=== PATIENT | male | born 1985 | race African-American/Black ===

== ENCOUNTER 2019-04-20 23:26 | Emergency (ER) | payer SELFPAY ==
[2019-04-20 23:37] VITALS: TEMP 98.2; BMI 31.5
[2019-04-20] MEDS ORDERED: IBUPROFEN 600 MG TABLET (FP) PO ONE (23:45)
[2019-04-20] MEDS ORDERED: DIPHTH,PERTUSS(ACELL),TET 0.5 ML DISP.SYRIN IM ONE (23:46)
[2019-04-21] MEDS ORDERED: AMOX TR/POT CLAV 875MG/125MG TABLETS (FP) PO ONE (00:10)
--- NOTE | 2019-04-21 00:25 | PDOC ---
History of Present Illness - General History Source: Patient, Significant Other Exam Limitations: No Limitations - History of Present Illness Initial Comments: 04/21/19 00:20 Shania Callahan is an otherwise healthy 33M presenting with dog bites to both arms. 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 Dog is a beagle/dalmatian mix, <30lbs. Per [place], phytopathology teacher's name is Naldo De La Cruz, vet is [facility], but actual rabies status unknown. Dog did not appear to have rabies. Reports some numbness to R 4th and 5th fingers and pain and swelling to both arms. Otherwise denies any other symptoms. Last tetanus unknown. <Josiah Cali - Last Filed: 04/21/19 00:20> <Zoë Pike - Last Filed: 04/22/19 09:24> - General Chief Complaint: Bite Stated Complaint: DOG BITE Time Seen by Provider: 04/20/19 23:34 Past History - Past Medical History COPD: No - Suicide/Smoking/Psychosocial Hx Smoking History: Unknown if ever smoked <Josiah Cali - Last Filed: 04/21/19 00:20> <Zoë Pike - Last Filed: 04/22/19 09:24> - Past Medical History Allergies/Adverse Reactions: Allergies Allergy/AdvReac Type Severity Reaction Status Date / Time No Known Allergies Allergy Verified 04/20/19 23:37 Home Medications: Ambulatory Orders Amox-Tr/K Cl [Augmentin - 875Mg Tablet] 1 tab PO BID #10 tablet 04/21/19 Amox-Tr/K Cl [Augmentin - 875Mg Tablet] 1 tab PO BID #10 tablet 04/22/19 Review of Systems - Review of Systems Constitutional: No: Symptoms Reported HEENTM: No: Symptoms Reported Respiratory: No: Symptoms reported Cardiac (ROS): No: Symptoms Reported ABD/GI: No: Symptoms Reported : No: Symptoms Reported Integumentary: Yes: Bruising, Erythema, Other (bites to both hands) Neurological: Yes: Numbness (4th and 5th fingers R hand) Endocrine: No: Symptoms Reported Hematologic/Lymphatic: No: Symptoms Reported All Other Systems: Reviewed and Negative <Josiah Cali - Last Filed: 04/21/19 00:20> *Physical Exam - Vital Signs Last Vital Signs Temp Pulse Resp BP Pulse Ox 98.2 F 70 18 167/116 H 100 04/20/19 23:35 04/20/19 23:35 04/20/19 23:35 04/20/19 23:35 04/20/19 23:35 - Physical Exam General Appearance: Yes: Nourished, Appropriately Dressed. No: Apparent Distress HEENT: positive: EOMI, Normal Voice, Symmetrical. negative: Scleral Icterus (R) , Scleral Icterus (L) Neck: positive: Trachea midline, Normal Thyroid, Supple. negative: Rigid, Lymphadenopathy (R), Lymphadenopathy (L) Respiratory/Chest: positive: Lungs Clear, Normal Breath Sounds. negative: Chest Tender, Respiratory Distress, Accessory Muscle Use, Crackles, Rales, Rhonchi Cardiovascular: positive: Regular Rhythm, Regular Rate. negative: Edema, Murmur Gastrointestinal/Abdominal: positive: Normal Bowel Sounds, Tender, Soft. negative: Flat Musculoskeletal: positive: Normal Inspection Extremity: positive: Normal Capillary Refill, Other (BUE: full ROM, 5/5 motor strength to all groups, tender to palpation to both forearms, 2 <1cm bit wounds to R dorsal forearm, 1 <1cm bite wound to R wrist, 1 <1cm bite wound to L dorsal forearm, pulsese present, scattered excoriations non-bleeding, no notable teeth fragments in wounds, R forearm swollen along ulnar aspect of wrist.) Integumentary: positive: Normal Color, Dry, Warm Neurologic: positive: insulation nozzleman II-XII NML intact, Fully Oriented, Alert, Normal Mood/ Affect, Normal Response <Josiah Cali - Last Filed: 04/21/19 00:20> - Vital Signs Last Vital Signs Temp Pulse Resp BP Pulse Ox 98.2 F 56 L 18 157/115 H 99 04/20/19 23:35 04/21/19 01:08 04/21/19 01:08 04/21/19 01:08 04/21/19 01:08 <Zoë Pike - Last Filed: 04/22/19 09:24> ED Treatment Course - Medications Given in the ED: ED Medications Discontinued Medications Generic Name Dose Route Start Last Admin Trade Name Freq PRN Reason Stop Dose Admin Amoxicillin/Clavulanate Potassium 1 tab 04/21/19 00:10 04/21/19 00:38 Augmentin - 875mg Tablet PO 04/21/19 00:11 1 tab ONCE ONE Administration Diphtheria/Tetanus/Acell Pertussis 0.5 ml 04/20/19 23:46 04/21/19 01:04 Boostrix - IM 04/20/19 23:47 0.5 ml .ONCE ONE Administration Ibuprofen 600 mg 04/20/19 23:45 04/21/19 00:39 Motrin - PO 04/20/19 23:46 600 mg ONCE ONE Administration <Zoë Pike - Last Filed: 04/22/19 09:24> Medical Decision Making - Medical Decision Making 04/21/19 00:20 Shania Callahan is an otherwise healthy 33M presenting with dog bites to both arms. Bites are small and do not look infected. Copious irrigation performed with 1L NS. Will give tetanus booster given unknown hx, Motrin for pain/inflammation control, ice pack, and one dose of Augmentin for prophylaxis. Unknown rabies status but dog seen by vet and phytopathology teacher known, patient can easily determine this status in the morning. If not, will observe dog for 10 days for symptoms of rabies. Good to go home with PCP f/u and strict precautions. <Josiah Cali - Last Filed: 04/21/19 00:20> *DC/Admit/Observation/Transfer <Josiah Cali - Last Filed: 04/21/19 00:20> - Discharge Dispostion Decision to Admit order: No <Zoë Pike - Last Filed: 04/22/19 09:24> Diagnosis at time of Disposition: Dog bite of arm Qualifiers: Encounter type: initial encounter Laterality: unspecified laterality Qualified Code(s): S41.159A - Open bite of unspecified upper arm, initial encounter - Discharge Dispostion Disposition: HOME Condition at time of disposition: Good - Prescriptions Prescriptions: Amox-Tr/K Cl [Augmentin - 875Mg Tablet] 1 tab PO BID #10 tablet Amox-Tr/K Cl [Augmentin - 875Mg Tablet] 1 tab PO BID #10 tablet - Patient Instructions Printed Discharge Instructions: How to Care for a Domestic Animal Bite, DI for Animal Bites Additional Instructions: Today you were evaluated for a dog bite. We have evaluated your arm and do not see any severe injuries. The pain and numbness is caused by the swelling to your arm. Please keep your wounds on ice, take ibuprofen every 6 hours as needed for pain, and keep the bite wounds clean. We are not going to suture them closed due to risk of infection and abscess formation, but you can cover them in gauze and use bacitracin or another antibiotic cream to keep them from getting infected. We are giving you a tetanus shot because you have not had one recently, and are sending you home with a 10-day supply of an antibiotic called Augmentin. Please take 2 tablets each day for the next 10 days to prevent infection. If you begin to see pus in the wounds, have worsening pain, redness, worsening numbness, become unable to use your hands, or have any new or concerning symptoms, please return the emergency room immediately. Please remember to follow-up with the phytopathology teacher and vet for the dog's rabies status. If you cannot determine the rabies status, please observe the dog for 10 days to see if it exhibits wild behavior concerning for rabies, and bring it back to the vet for further care.
[2019-04-21] MEDS ORDERED: IBUPROFEN 600 MG TABLET (FP) PO ONE (00:32)
--- NOTE | 2019-04-21 00:33 | PDOC ---
Documentation entered by King Nelson SCRIBE, acting as scribe for Zoë Pike MD. Zoë Pike MD: This documentation has been prepared by the Leslie henry Elijah, SCRIBE, under my direction and personally reviewed by me in its entirety. I confirm that the documentation accurately reflects all work, treatment, procedures, and medical decision making performed by me. Attending Attestation - Resident Resident Name: VirajJosiah - ED Attending Attestation I have performed the following: I have examined & evaluated the patient, The case was reviewed & discussed with the resident, I agree w/resident's findings & plan - HPI HPI: 04/20/19 23:55 Patient is a 33 year old with no reported past medical history who reports to the ED s/p dog bites to BUE occurring x30 minutes ago. Patient reports that he and his roommate with were watching a dog when it began to feel anxious and attacked the patient. Patient was bitten in both arms and currently has pain in his bilateral arms and hands with numbness to his rt pinky and ring fingers. 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 Allergies: NKA last tdap unclear. 04/21/19 00:28 - Physicial Exam PE: 04/21/19 00:01 General: Well appearing, awake and alert, NAD. HEENT: NCAT, PERRL, EOMI, clear conjunctiva, anicteric, moist mucous membranes , clear oropharynx, no oral lesions.. Neck: neck supple, FROM Resp: normal and even respirations, no respiratory distress CVS: 2+ peripheral pulses throughout, no peripheral edema MSK: no edema, COLEMAN x4, ROM intact. No clubbing or cyanosis. normal bulk and tone. Neuro: alert, diminished sensation to touch in ulnar aspect of RH. 5/5 senior administrative services officer strength. 5/5 adductor and abduction against resistance. FDP and FDS intact in all fingers. ROM intact in all extremities. Skin: warm and well perfused, cap refill <2 sec, normal color, small puncture wounds to BUE, nonbleeding, abrasions. no FB visualized. some swelling noted to right hand and forearm at sites of the superficial lacerations. 04/21/19 00:29 - Medical Decision Making 04/21/19 00:31 Vital Signs Temp Pulse Resp BP Pulse Ox 98.2 F 70 18 167/116 H 100 04/20/19 23:35 04/20/19 23:35 04/20/19 23:35 04/20/19 23:35 04/20/19 23:35 no foreign body wound cleaned out with 1L normal saline with splash guard into all the puncture sites. bleeding controlled wound care precautions advised tdap updated. NELIDA form filled out and faxed. no rabies ppx for now, as this is pet and pt will contact mule tender's vet for vaccination information htn here, on repeat as well. but also with inciting factor. no cp or sob or ams , so clinical recheck advised, no need to start therapy as he did present with pain. copious irrigation with sterile water/normal saline approx 1 Liter, tolerated without difficulty. areas cleaned and dried, xeroform/topical abx, non adherent dressings, gauze and supportive care. No sutures indicated OR sutures placed for wound approximation Antibiotics: Trial of augmentin x 10 days, if not improving or worsening sx > 24-48 hours, return sooner for reeval/wound check/IV abx. keep area clean and covered, may clean with soap and water. motrin/tylenol as needed for pain control. take medications with food. 04/22/19 09:21
[2019-04-21] MEDS ORDERED: AMOX TR/POT CLAV 875MG/125MG TABLETS (FP) ONE (00:35)
[2019-04-21 01:08] VITALS: BP 157/115; PULSE 56
== END 2019-04-21 01:10 | disposition home or self-care (01) ==
LOC: JER 23:26
PROC: 3E0234Z Introduction of Serum, Toxoid and Vaccine into Muscle, Percutaneous Approach (ICD-10-PCS; principal; 2019-04-20)
DX: S51.852A Open bite of left forearm, initial encounter (principal); S51.851A Open bite of right forearm, initial encounter; W54.0XXA Bitten by dog, initial encounter; Y93.K9 Activity, other involving animal care; Y92.038 Other place in apartment as the place of occurrence of the external cause; Y99.8 Other external cause status
CPT/HCPCS: 90715; 99282-25